=== PATIENT | female | born 1975 | race Caucasian/White ===

== ENCOUNTER → 2019-03-21 | Outpatient (REF) | payer BC, OTHER ==
[~2019-03-21] MED LIST: FLOM0.4C39 PO; OXYC1TAB23 PO; XANA0.25 PO
[2019-03-21 18:07] LABS: APPEARANCE, URINE CLEAR (CLEAR); BACTERIA, URINE AUTO NEGATIVE (NEGATIVE); BILIRUBIN, URINE AUTO NEGATIVE (NEGATIVE); BLOOD, URINE BLOOD 1+ (NEGATIVE); COLOR, URINE STRAW (YELLOW); GLUCOSE, URINE (UA) AUTO NEGATIVE (NEGATIVE); KETONE, URINE AUTO NEGATIVE (NEGATIVE); LEUKOCYTE ESTERASE, URINE AUTO NEGATIVE (NEGATIVE); MUCUS, URINE SMALL (NEGATIVE); NITRITE, URINE AUTO NEGATIVE (NEGATIVE); PROTEIN, URINE AUTO NEGATIVE (NEGATIVE); RBC, URINE AUTO 13 /HPF (0-3); SPECIFIC GRAVITY URINE AUTO 1.015 (1.002-1.035); SQUAMOUS EPITHELIAL CELL UR AU 0 /HPF (0-6); UROBILINOGEN, URINE AUTO 0.2 mg/dL (0.0-2.0); WBC, URINE AUTO 2 /HPF (0-3)
== END ==
LOC: M SMT 16:59
PROVIDERS: ATTEND Nurse Practitioner Women's Health
DX: R10.9 Unspecified abdominal pain (principal)

== ENCOUNTER 2019-03-29 10:01 | Day surgery (SDC) | payer BC ==
[~2019-03-29] VITALS: Ht 165.1 cm; Wt 77.9 kg
[~2019-03-29 10:01] MED LIST changes: +LIDOCAINE 2% INJ 100 MG/5 ML SDV (FOR ANES.) As Ordered ONE; +LR 1,000 ML IV ONE; +MIDAZOLAM INJ 2 MG/2 ML VIAL (J2250) As Ordered ONE; +ONDANSETRON 4MG/2ML VIAL (J2405) As Ordered ONE; +PROPOFOL 200 MG/20 ML VIAL As Ordered ONE; +ROCURONIUM BROMIDE 50 MG/5 ML VIAL As Ordered ONE; +dexameTHASONE 4 MG/ML 1ML VIAL (J1100) As Ordered ONE; +fentaNYL 100 MCG/2 ML INJECTION (J3010) As Ordered ONE
[2019-03-29] MEDS ORDERED: MIDAZOLAM INJ 2 MG/2 ML VIAL (J2250) As Ordered ONE (10:42)
[2019-03-29] MEDS ORDERED: ALBUTEROL SULFATE 2.5 MG/0.5 ML INH NEB SOLN As Ordered ONE (10:43)
[2019-03-29] MEDS ORDERED: ALBUTEROL SULFATE 2.5 MG/0.5 ML INH NEB SOLN INH ONE (11:00)
[2019-03-29] MEDS ORDERED: CONRAY-60 60% 50ML VIAL (Q9961) As Ordered ONE (12:40)
[2019-03-29] MEDS ORDERED: fentaNYL 100 MCG/2 ML INJECTION (J3010) As Ordered ONE (13:04)
[2019-03-29] MEDS ORDERED: SUGAMMADEX SODIUM 500 MG/5 ML VIAL (BRIDION) As Ordered ONE (13:15)
[2019-03-29] MEDS ORDERED: PHENYLephrine HCL 500 MCG/5 ML (100MCG/ML) SYRINGE (J2370) As Ordered ONE (13:16)
[2019-03-29] MEDS ORDERED: ACETAMINOPHEN 1000MG 100ML IV BTL (OFIRMEV) (J0131 PER 10MG) As Ordered ONE (13:19)
[2019-03-29] MEDS ORDERED: ePHEDrine SULFATE 25 MG/5 ML(5MG/ML) SYRINGE As Ordered ONE (13:34)
[2019-03-29] MEDS ORDERED: METOCLOPRAMIDE INJ 10MG/2ML VIAL (J2765) IV PRN (14:30)
[2019-03-29] MEDS ORDERED: MORPHINE 10 MG/ML 1ML VIAL (J2270) IV PRN (14:30)
[2019-03-29] MEDS ORDERED: ONDANSETRON 4MG/2ML VIAL (J2405) IV PRN (14:30)
[2019-03-29] MEDS ORDERED: LR 1,000 ML IV SCH (14:30)
[2019-03-29] MEDS ORDERED: fentaNYL 100 MCG/2 ML INJECTION (J3010) IV PRN (14:30)
[2019-03-29] MEDS ORDERED: PERCOCET 5MG/325MG TAB PO PRN ×2 (14:30)
--- NOTE | 2019-03-29 14:46 | REP ---
Retrograde pyelogram: Three views. History: Nephrolithiasis. Comparison study: June 11, 2014. Findings: A sequence of three last image hold fluoroscopically obtained spot radiographs of the abdomen document right ureteral cannulation, contrast injection, and double pigtailed stent placement. Tubal ligation clamps are noted. 3 seconds of fluoroscopy time is reported. Electronically Signed by Antoni Pena MD 03/29/2019 07:58 P
[2019-03-29 15:10] VITALS: BP 134/71
--- NOTE | 2019-03-30 10:07 | RO ---
DATE OF PROCEDURE: 03/29/2019 PREPROCEDURE DIAGNOSIS: Right kidney stones. POSTPROCEDURE DIAGNOSIS: Right kidney stones. PROCEDURE: Cystoscopy, right ureteroscopy with laser lithotripsy and basket extraction of stones, right retrograde pyelogram with intraoperative interpretation of images, right ureteral stent placement. SURGEON: Dr. Luis Mcqueen. RURAL ELECTRIFICATION ENGINEER: None. ANESTHESIA: General. OPERATIVE INDICATIONS: This is a 43-year-old female who was found to have a 1.4 cm right renal pelvis stone as well as two smaller stones in the kidney. She was brought to the operating room today for treatment. DESCRIPTION OF PROCEDURE: The patient was brought to the operating room and general anesthesia was induced. Prophylactic antibiotics were infused. She was then placed in the dorsal lithotomy position, prepped and draped in the usual sterile fashion. A rigid cystoscope was inserted through the urethral meatus and advanced to the bladder. A guidewire was advanced up the right collecting system. A ureteral access sheath was advanced up the right collecting system. I went up the access sheath with the flexible ureteral scope to the renal pelvis. Inside the renal pelvis, a 1.4 cm stone was seen. The stone was then fragmented into smaller pieces using a 270 micro laser fiber. Any additional stones in the kidney were also fragmented into smaller pieces. All the fragments were then removed using a basket. Once done basketing all the stone fragments, nothing remained except very tiny stone debris that should be able to pass. A retrograde pyelogram was performed and was notable for mild to moderate right hydronephrosis with no extravasation. I then withdrew the ureteroscope along with the access sheath and no additional stones were seen within the ureter. At this point, the wire was utilized to advance a 6-Mongolian x 22-32 cm JJ ureteral stent up to the right collecting system. The wire was removed and there were adequate curls of the stent in the right renal pelvis and in the bladder. The bladder was emptied of all fluid. This marked the conclusion of the procedure. The patient was then taken out of the dorsal lithotomy position, awakened from anesthesia and transported to the recovery room in stable condition. ESTIMATED BLOOD LOSS: 5 mL. COMPLICATIONS: None. SPECIMENS: Kidney stone fragments. PLAN: The patient will followup in the clinic in a week or two for stent removal. MAIA
== END 2019-03-29 15:22 | disposition home or self-care (01) ==
LOC: M SDC 10:01
PROVIDERS: ATTEND Urology
DX: N20.0 Calculus of kidney (principal); J44.9 Chronic obstructive pulmonary disease, unspecified; F41.9 Anxiety disorder, unspecified; F17.210 Nicotine dependence, cigarettes, uncomplicated; Z79.899 Other long term (current) drug therapy
CPT/HCPCS: 52356; 74420; 82360; 88300; C1769; C1894; C2617; J0131; J0690; J1100; J2250; J2370; J2405; J3010; Q9961